=== PATIENT | female | born 1975 | race Hispanic/Latino ===

== ENCOUNTER 2016-11-28 15:45 | Emergency (ER) | payer OTHER ==
[~2016-11-28] VITALS: Ht 154.9 cm; Wt 96.2 kg
[~2016-11-28 15:45] MED LIST: FLEXERIL10 MG PO; GLUCOPHAGE1000 MG PO; SYNTHROID0.05 MG PO; VICODIN5-300 PO
[2016-11-28 15:55] VITALS: BP 131/83
[2016-11-28] MEDS ORDERED: SYNTHROID100 MCG PO (16:30)
[2016-11-28] MEDS ORDERED: TRAZODONE HCL50 M1 PO (16:31)
[2016-11-28] MEDS ORDERED: CYANOCOBAL1000 MCG/2 IM (16:31)
== END 2016-11-28 16:57 | disposition admitted as inpatient to this hospital (09) ==
LOC: ERH 15:45
DX: L55.9 Sunburn, unspecified (principal)

== ENCOUNTER 2017-10-14 23:30 | Inpatient (IN) | payer OTHER ==
[~2017-10-14] VITALS: Ht 154.9 cm; Wt 94.8 kg
[~2017-10-14 23:30] MED LIST changes: +CYANOCOBAL1000 MCG/2 IM; +IBUPROFEN800 M1 PO; +LOCOID 0.1% LIP15 GM TOP; +SYNTHROID100 MCG PO; +TESSALON PERLE100 M1 PO; +TRAZODONE HCL50 M1 PO; +VITAMIN D31000 UNI2 PO
--- NOTE | 2017-10-14 23:37 | ED GI/GU/ABDOMINAL COMPLAINT ---
History of Present Illness General Chief Complaint: Abdominal Pain/Flank Pain Stated Complaint: ABD PAIN Source: patient, family, old records Exam Limitations: no limitations Vital Signs & Intake/Output Vital Signs & Intake/Output Vital Signs Date Time Temp Pulse Resp B/P B/P Pulse O2 O2 Flow FiO2 Mean Ox Delivery Rate 10/14 2336 98.5 83 20 125/92 98 Room Air ED Intake and Output 10/15 0000 10/14 1200 Intake Total Output Total Balance Patient 220 lb Weight Weight Reported by Patient Measurement Method Allergies Coded Allergies: Penicillins (HIVES 11/28/16) Reconcile Medications Benzonatate (Tessalon Perle) 100 MG CAPSULE 1 CAP PO TID COUGH (Reported) Cholecalciferol (Vitamin D3) 1,000 UNIT TABLET 1 TAB PO DAILY VITAMIN SUPPORT (Reported) Cyanocobalamin (Vitamin B-12) (Cyanocobalamin Injection) 1,000 MCG/ML VIAL 1 ML IM Q30D SUPPLEMENT (Reported) Hydrocortisone Butyrate/Emoll (Locoid 0.1% Lipocream) 0.1 % CREAM..G. 1 ERVIN TOP TID PRN ANAL PAIN Ibuprofen 800 MG TABLET 1 TAB PO TID PRN PAIN Levothyroxine Sodium (Synthroid) 100 MCG TABLET 1 TAB PO DAILY THYROID ( Reported) Triage Nurses Notes Reviewed? yes ? N Is pt currently ? No HPI: Patient has a known ventral hernia that she has been procrastinating seeing surgery about. Tonight she had a sudden onset of sharp stabbing pain in the area of her hernia and her hernia popped out and she was unable to put back in. Positive nausea and vomiting. The pain radiates out to the rest of her abdomen. The pain is constant. The pain is 10 out of 10. The pain worsens when she retches. Past History Travel History Traveled to [place] past 21 day No Medical History Any Pertinent Medical History? 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 No Review of Systems Review of Systems Constitutional: Reports: no symptoms. EENTM: Reports: no symptoms. Respiratory: Reports: no symptoms. Cardiovascular: Reports: no symptoms. GI: Reports: see HPI, abdominal pain, nausea, vomiting. Genitourinary: Reports: no symptoms. Musculoskeletal: Reports: no symptoms. Skin: Reports: no symptoms. Neurological/Psychological: Reports: no symptoms. Hematologic/Endocrine: Reports: no symptoms. Immunologic/Allergic: Reports: no symptoms. All Other Systems: Reviewed and Negative Physical Exam Physical Exam General Appearance: well developed/nourished, alert, awake, anxious, severe distress Head: atraumatic, normal appearance Eyes: Bilateral: PERRL, EOMI. Ears, Nose, Throat, Mouth: hearing grossly normal, moist mucous membrane Neck: normal inspection, supple, full range of motion Respiratory: normal breath sounds, chest non-tender, no respiratory distress, lungs clear Cardiovascular: regular rate/rhythm, normal peripheral pulses Gastrointestinal: hernia Back: normal inspection, normal range of motion Extremities: normal range of motion Neurologic/Psych: no motor/sensory deficits, awake, alert, normal mood/affect Skin: intact, normal color, warm/dry Core Measures ACS in differential dx? No Sepsis Present: No Sepsis Focused Exam Completed? No Progress Differential Diagnosis: INCARCERATED HERNIA Plan of Care: Orders Procedure Date/time Status Nothing by Mouth 10/15 B Active LACTIC ACID 10/15 0249 Active Pathway - chart 10/15 022 Active Patient Data 10/15 221 Active Code Status 10/[address] in observation 10/15 UNK Active VTE Mechanical Prophylaxis 10/15 UNK Active Intake & Output 10/15 UNK Active Activity/Ambulation 10/15 UNK Active URINALYSIS 10/14 2349 Complete LACTIC ACID 10/14 234 Complete HUMAN BETA HCG SCREEN 10/14 2348 Complete COMPREHENSIVE METABOLIC PANEL 10/14 2348 Complete CBC WITHOUT DIFFERENTIAL 10/14 2348 Complete Current Medications Sig/Flower Start time Last Medication Dose Stop Time Status Admin Pantoprazole Sodium 40 MG DAILY 10/15 0900 UNVr (Protonix) Dextrose/Sodium 1,000 ML .Q8H 10/15 0230 UNVr Chloride (D5W-1/2 Normal Saline 1000ML) Hydromorphone HCl 1 MG ONCE ONE 10/15 0230 UNVr 10/15 (Dilaudid) 05/27 0231 0222 Hydromorphone HCl 1 MG Q3P PRN 10/15 023 UNVr (Dilaudid) Hydromorphone HCl 0.6 MG Q4P PRN 10/15 229 UNVr (Dilaudid) Ondansetron HCl 4 MG Q8P PRN 10/15 229 UNVr (Zofran) Promethazine HCl 12.5 MG Q6-PRN PRN 10/15 023 UNVr (Phenergen) 10/22 022 Promethazine HCl 25 MG ONCE ONE 10/15 199 UNVr 10/15 (Phenergen) 10/15 200 0158 Sodium Chloride 1,000 ML BOLUS ONE 10/15 129 UNVr 10/15 (Normal Saline 0.9%) 10/15 228 0134 Oxycodone/ 1 TAB ONCE ONE 10/15 0045 CAN Acetaminophen 10/15 0046 (Percocet) Laboratory Tests 10/15/17 0005: Urine Color YEL, Urine Clarity HAZY H, Urine pH 6.0, Ur Specific [place] >= 1.030, Urine Protein NEG, Urine Ketones TRACE H, Urine Nitrite NEG, Urine Bilirubin NEG, Urine Urobilinogen 0.2, Ur Leukocyte Esterase TRACE H, Ur Microscopic SEDIMENT EXAMINED, Urine RBC 1-3, Urine WBC 5-10 H, Ur Epithelial Cells MOD H, Urine Bacteria MANY H, Urine Hemoglobin NEG, Urine Glucose NEG 10/14/17 2355: Anion Gap 17 H, Estimated GFR > 60, BUN/Creatinine Ratio 16.3, Glucose 94, Lactic Acid 2.4 H, Calcium 9.7, Total Bilirubin 0.3, AST 27, ALT 31, Alkaline Phosphatase 120, Total Protein 7.8, Albumin 4.6, Globulin 3.2, Albumin/Globulin Ratio 1.4, Total Beta HCG NEGATIVE, CBC w Diff NO MAN DIFF REQ, RBC 4.42, MCV 77.3 L, MCH 24.7 L, MCHC 31.9 L, RDW 19.3 H, MPV 7.7, Gran % 68.7, Lymphocytes % 22.0, Monocytes % 6.9, Eosinophils % 2.0, Basophils % 0.4, Absolute Granulocytes 6.3, Absolute Lymphocytes 2.0, Absolute Monocytes 0.6, Absolute Eosinophils 0.2, Absolute Basophils 0 Diagnostic Imaging: Viewed by Me: CT Scan. Discussed w/RAD: CT Scan. Radiology Impression: PATIENT: RUDY DAI PRESENT AGE: 42 PATIENT ACCOUNT NO: [id number] : 76 LOCATION: [facility] [place] ORDERING PHYSICIAN: Ciarra Gandara MD SERVICE DATE: 10/15/17 EXAM TYPE: CAT - CT ABD & PELVIS W/O IV CONTRAS EXAMINATION: CT ABDOMEN AND PELVIS WITHOUT CONTRAST CLINICAL INFORMATION: Known hernia. Question bowel involvement. COMPARISON: None TECHNIQUE: Multidetector volumetric imaging was performed from the superior aspect of the liver through the pubic symphysis. Sagittal and coronal reformatted images were obtained on the technologist's workstation. DLP: 1167 mGy-cm FINDINGS: LUNG BASES: Minimal bibasilar atelectasis. The visualized cardiac structures are unremarkable. LIVER, GALLBLADDER, AND BILIARY TREE: The liver is normal in size, shape, and attenuation. No focal hepatic lesion or biliary ductal dilatation is present. The gallbladder is unremarkable with no evidence of radiopaque gallstones, gallbladder wall thickening, or obvious pericholecystic inflammatory changes. PANCREAS: Unremarkable. SPLEEN: Unremarkable. ADRENAL GLANDS: Unremarkable. KIDNEYS AND URETERS: The kidneys are normal in size, shape, and attenuation. No hydronephrosis, hydroureter, or calculi seen. No perinephric stranding. BLADDER: Unremarkable. GASTROINTESTINAL TRACT: Status post Elisabeth-en-Y gastric bypass. The small bowel is mildly prominent and fluid-filled. This extends to an umbilical hernia which contains a loop of small bowel. This appears to be the transition point, consistent with a partial bowel obstruction. There is gas and stool seen within the colon. No free air or free fluid. ABDOMINAL WALL: Umbilical hernia containing a loop of small bowel which appears obstructing. This may be incarcerated. The hernia neck measures 2.7 cm transverse by 1.4 cm CC. LYMPH NODES: Normal. VASCULAR: Unremarkable. PELVIC VISCERA: The uterus and adnexa are unremarkable. OSSEOUS STRUCTURES: No acute or suspicious osseous abnormality. IMPRESSION: Partial small bowel obstruction with the transition point at the umbilical hernia which contains a loop of small bowel. DICTATED BY: Nicho PARKS,Clark DATE/TIME DICTATED:10/15 INFORMATION SECURITY SPECIALIST:KANCHAN DATE/TIME TRANSCRIBED:05/27/18 / 0154 CONFIDENTIAL, DO NOT COPY WITHOUT APPROPRIATE AUTHORIZATION. <Electronically signed in Other Vendor System> SIGNED BY: Nicho PARKS,Clark 10/15/17203 Initial ED EKG: none Comments: Patient placed in the Trendelenburg position and an ice pack has been applied. Patient received IV pain medications as well as antiemetics. Unable to reduce the hernia. On her blood work she is getting acidotic. Surgery has been paged. Departure Departure Disposition: STILL A PATIENT Condition: Stable Clinical Impression Primary Impression: Incarcerated hernia Referrals: Kirstie Roberts APRN (PCP/Family) Departure Forms: Customer Survey General Discharge Information Observation Note Spoke With: Hansel Hoffman DO Physician Advisor Notified: MARCIA PARKS,CIARRA Duran Place Patient In: Non-ED OBS Care Area Rationale for Observation: My rational for observation is as follows [SURGICAL CORRECTION FOR INCARCERATED HERNIA]. OR/GI Note Spoke With: Hansel Hoffman DO ED Treatment Decision: RUDY DAI requires urgent operative management or an emergent procedure that cannot be performed in the Emergency Room setting. Transport To: [facility]
[2017-10-15 00:27] LABS: ABSOLUTE BASOPHIL COUNT 0 /CUMM (0.0-0.2); ABSOLUTE EOSINOPHIL COUNT 0.2 /CUMM (0.0-0.7); ABSOLUTE GRANULOCYTE CT 6.3 /CUMM (1.4-6.5); ABSOLUTE MONOCYTE COUNT 0.6 /CUMM (0.10-0.60); BASOPHIL % 0.4 % (0.0-2.0); GRANULOCYTE % 68.7 % (42.2-75.2); HEMATOCRIT 34.1 % (37-47); MEAN CORPUSCULAR HGB 24.7 PG (27.0-31.0); MEAN CORPUSCULAR HGB CONC 31.9 G/DL (33.0-37.0); MEAN CORPUSCULAR VOLUME 77.3 FL (81.0-99.0); MEAN PLATELET VOLUME 7.7 FL (7.4-10.4); PLATELET COUNT 362 /CUMM (130-400); RBC DISTRIBUTION WIDTH 19.3 % (11.5-14.5); RED BLOOD CELL CT 4.42 /CUMM (4.20-5.40); WHITE BLOOD CELL COUNT 9.1 /CUMM (4.8-10.8)
--- NOTE | 2017-10-15 02:04 | CT SCAN REPORT ---
EXAMINATION: CT ABDOMEN AND PELVIS WITHOUT CONTRAST CLINICAL INFORMATION: Known hernia. Question bowel involvement. COMPARISON: None TECHNIQUE: Multidetector volumetric imaging was performed from the superior aspect of the liver through the pubic symphysis. Sagittal and coronal reformatted images were obtained on the technologist's workstation. DLP: 1167 mGy-cm FINDINGS: LUNG BASES: Minimal bibasilar atelectasis. The visualized cardiac structures are unremarkable. LIVER, GALLBLADDER, AND BILIARY TREE: The liver is normal in size, shape, and attenuation. No focal hepatic lesion or biliary ductal dilatation is present. The gallbladder is unremarkable with no evidence of radiopaque gallstones, gallbladder wall thickening, or obvious pericholecystic inflammatory changes. PANCREAS: Unremarkable. SPLEEN: Unremarkable. ADRENAL GLANDS: Unremarkable. KIDNEYS AND URETERS: The kidneys are normal in size, shape, and attenuation. No hydronephrosis, hydroureter, or calculi seen. No perinephric stranding. BLADDER: Unremarkable. GASTROINTESTINAL TRACT: Status post Elisabeth-en-Y gastric bypass. The small bowel is mildly prominent and fluid-filled. This extends to an umbilical hernia which contains a loop of small bowel. This appears to be the transition point, consistent with a partial bowel obstruction. There is gas and stool seen within the colon. No free air or free fluid. ABDOMINAL WALL: Umbilical hernia containing a loop of small bowel which appears obstructing. This may be incarcerated. The hernia neck measures 2.7 cm transverse by 1.4 cm CC. LYMPH NODES: Normal. VASCULAR: Unremarkable. PELVIC VISCERA: The uterus and adnexa are unremarkable. OSSEOUS STRUCTURES: No acute or suspicious osseous abnormality. IMPRESSION: Partial small bowel obstruction with the transition point at the umbilical hernia which contains a loop of small bowel.
--- NOTE | 2017-10-15 03:11 | History & Physical Pre-Op ---
Neil Camacho 10/15/17 0213: General Information and HPI MD Statement: I have seen and personally examined RUDY DAI and documented this H&P. The patient is a 42 year old F who presented with a patient stated chief complaint of []. Source of Information: patient History of Present Illness: This is a 42 year-old female with a history of hypothyroidism, B12 deficiency anemia and long standing umbilical hernia for 20 years who presents to the ER with suddent onset of sharp, squeezing pain in the area of her hernia. She reports she was at a BBQ and was sitting when the hernia popped out this evening. She reports assoicated nausea and vomited clear material. She reports drinking beer and last ate an empanada around 10 pm. She states her hernia has reduced spontanously in the past. In the ER, hernia was unable to be reduced at the bedside. She had a CT scan which revealed mildly prominent and fluid-filled small bowel that extends to an umbilical hernia which contains a loop of small bowel. Allergies/Medications Allergies: Coded Allergies: Penicillins (HIVES 11/28/16) Home Med list Benzonatate (Tessalon Perle) 100 MG CAPSULE 1 CAP PO TID COUGH (Reported) Cholecalciferol (Vitamin D3) 1,000 UNIT TABLET 1 TAB PO DAILY VITAMIN SUPPORT (Reported) Cyanocobalamin (Vitamin B-12) (Cyanocobalamin Injection) 1,000 MCG/ML VIAL 1 ML IM Q30D SUPPLEMENT (Reported) Hydrocortisone Butyrate/Emoll (Locoid 0.1% Lipocream) 0.1 % CREAM..G. 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 EENTM: Reports: no symptoms. Respiratory: Reports: no symptoms. Cardiovascular: Reports: no symptoms. GI: Reports: see HPI. Genitourinary: Reports: no symptoms. Musculoskeletal: Reports: no symptoms. Skin: Reports: no symptoms. Neurological/Psychological: Reports: no symptoms. Hematologic/Endocrine: Reports: no symptoms. Immunologic/Allergic: Reports: no symptoms. All Other Systems: Reviewed and Negative Exam & Diagnostic Data Last 24 Hrs of Vital Signs/I&O Vital Signs Date Time Temp Pulse Resp B/P B/P Pulse O2 O2 Flow FiO2 Mean Ox Delivery Rate 10/14 2336 98.5 83 20 125/92 98 Room Air Intake & Output 10/15 0800 10/15 0000 10/14 1600 Intake Total 1000 Output Total Balance 1000 Intake, IV 1000 Patient 220 lb Weight Weight Reported by Patient Measurement Method Physical Exam: General: awake and alert accompained by in mild distress due to pain HEENT: NC/AT, dry mucus membranes Lungs: no respiratory distress, CTAB Cardiac: S1S2 noted, RRR Gastrointestinal: moderate umbilical hernia present, unable to reduce, significantly tender to palpation, superior well healed midline incision noted, bowel sounds present Extremities: moves all extremities, no edema or calf tenderness normal range of motion Skin: warm an nondiaphoretic Last 24 Hrs of Labs/Fan: Laboratory Tests 10/15/17 0249: Lactic Acid Pending 10/15/17 0005: Urine Color YEL, Urine Clarity HAZY H, Urine pH 6.0, Ur Specific [place] >= 1.030, Urine Protein NEG, Urine Ketones TRACE H, Urine Nitrite NEG, Urine Bilirubin NEG, Urine Urobilinogen 0.2, Ur Leukocyte Esterase TRACE H, Ur Microscopic SEDIMENT EXAMINED, Urine RBC 1-3, Urine WBC 5-10 H, Ur Epithelial Cells MOD H, Urine Bacteria MANY H, Urine Hemoglobin NEG, Urine Glucose NEG 10/14/17 2355: Anion Gap 17 H, Estimated GFR > 60, BUN/Creatinine Ratio 16.3, Glucose 94, Lactic Acid 2.4 H, Calcium 9.7, Total Bilirubin 0.3, AST 27, ALT 31, Alkaline Phosphatase 120, Total Protein 7.8, Albumin 4.6, Globulin 3.2, Albumin/Globulin Ratio 1.4, Total Beta HCG NEGATIVE, CBC w Diff NO MAN DIFF REQ, RBC 4.42, MCV 77.3 L, MCH 24.7 L, MCHC 31.9 L, RDW 19.3 H, MPV 7.7, Gran % 68.7, Lymphocytes % 22.0, Monocytes % 6.9, Eosinophils % 2.0, Basophils % 0.4, Absolute Granulocytes 6.3, Absolute Lymphocytes 2.0, Absolute Monocytes 0.6, Absolute Eosinophils 0.2, Absolute Basophils 0 Assessment/Plan Assessment/Plan: This is a 42 year-old female with an incarcerated umbical hernia who requires emergent surgical intervention She will remain NPO on IV fluids and proceed to the OR in the morning for hernia repair possible bowel resection with Dr. Hoffman. OR has been notified. She will be kept comfortable with IV analgesics and antiemetics for discomfort. She will be placed in observation in anticipation of discharge if surgery is uneventful. Patient and family understand and agree with plan. Plan of care discussed with Dr. Hoffman who is in agreement. As Ranked By This Provider Problem List: 1. Incarcerated hernia YasminHansel cunningham DO 10/15/17 1010: Attending MD Review Statement Attending Statement Attending MD Statement: examined this patient, discuss w/resident/PA/PLATER APPRENTICE, agreed w/resident/PA/PLATER APPRENTICE, discussed with family, reviewed EMR data (avail), reviewed images Attending Assessment/Plan: Patient seen and examined, agree with above. Acute onset abdominal pain late last night at the hernia site (hernia present for ~20 years), N/V at time of the onset but none since, pain at the hernia site currently, patient admits to eating and alcohol intake up to 10 pm. AVSS UO ok. Abd-obese, soft, + incarcerated periumbilical ventral hernia. Labs ok. Ct scan partially obstructing small bowel loop within the hernia. NPO/IVF, pain control, plan for urgent ventral hernia repair with possible bowel resection. D/W with ED staff, patient, and family who are all in agreement.
--- NOTE | 2017-10-15 03:14 | Patient Discharge Instructions ---
Discharge Instructions General Discharge Information You were seen/treated for: Incarcerated umbilical hernia Watch for these problems: Increased pain, fever > 101.3, chills, nausea, vomiting, redness, swelling, drainage from you incision No bath, but you may shower: Yes Other wound care: Keep incision clean an dry Ok to remove dressing in 48 hours. Diet Continue normal diet: Yes Activity Full Activity/No Limits: No Activity Self Limited: Yes Pounds, do NOT lift more than: 10 (x 4 weeks) Other activity limits: No heavy lifting or streous activity x 4 weeks Acute Coronary Syndrome Inclusion Criteria At DC or during hospital stay patient has or had the following: ACS DIAGNOSIS No Discharge Core Measures Meds if any: Prescribed or Continued at Discharge Meds if any: NOT Prescribed or Continued at Discharge Congestive Heart Failure Inclusion Criteria At DC or during hospital stay patient has or had the following: CHF DIAGNOSIS No Discharge Core Measures Meds if any: Prescribed or Continued at Discharge Meds if any: NOT Prescribed or Continued at Discharge Cerebrovascular accident Inclusion Criteria At DC or during hospital stay patient has or had the following: CVA/TIA Diagnosis No Discharge Core Measures Meds if any: Prescribed or Continued at Discharge Meds if any: NOT Prescribed or Continued at Discharge Venous thromboembolism Inclusion Criteria VTE Diagnosis No VTE Type NONE VTE Confirmed by (Test) NONE Discharge Core Measures - Per Current guidelines, there needs to be overlap - treatment for the first 5 days of Warfarin therapy. - If discharged on Warfarin prior to 5 days of - overlap therapy, the patient will need to be - assessed for post discharge needs including - *Post discharge parental anticoagulation - *Warfarin and/or parental anticoagulation education - *Follow up date to check INR post discharge At least 5 days overlap therapy as Inpatient No Meds if any: Prescribed or Continued at Discharge Note: Overlap Therapy is Warfarin and Anticoagulant Meds if any: NOT Prescribed or Continued at Discharge
--- NOTE | 2017-10-15 10:30 | Operative Report ---
Operative/Inv Procedure Report Surgery Date: 10/15/17 Name of Procedure: Open small bowel resection, open periumbilical ventral hernia repair with mesh Pre-Operative Diagnosis: Incarcerated ventral hernia Post-Operative Diagnosis: Same Estimated Blood Loss: less than 50ml Surgeon/Senior Materials Planner: Hansel Hoffman DO Anesthesia: general endotracheal tube IV Fluids: 1300 cc Drains: None Specimens: ~10 cm small bowel, hernia sac/incarcerated omentum Complications: None Condition: Stable Operative Indication: This is a 42-year-old female that presented to the emergency room with acute onset of pain at her umbilical hernia site. After appropriate workup patient was found to have an incarcerated umbilical hernia with a loop of small bowel causing a partial bowel obstruction. An open hernia repair with possible mesh and a possible small bowel resection was and discussed with the patient and the family in detail. All risks including but not limited to bleeding, infection, recurrence, leak at anastomotic site, and injury to surrounding structures were discussed in detail. The patient understood everything and decided to proceed. Operative/Procedure Note Note: The patient was brought to the operating room and placed on the table in supine position. Venodyne stockings were placed and adequate general endotracheal anesthesia was obtained. Patient prepped and draped in standard surgical fashion. Midline incision was made around the umbilicus to approximately 10 cm in length. Incision was carried through the subcutaneous tissue to the hernia sac. The hernia sac was circumferentially dissected away from surrounding tissue. The umbilicus was detached off of the hernia sac making sure not to violate skin. At that point the hernia sac was opened and large amount of incarcerated omentum was identified and excised. A loop of small bowel was seen herniating through the opening and appeared purple color. The hernia defect was then extended inferiorly and the small bowel was brought into view. Small bowel was able to be fully reduced and examined. Most of the small bowel returned to good color with good peristalsis. However, areas that were at the neck of the hernia still appeared purple and narrowed. To prevent future ischemic strictures decision was made to resect the small portion of small bowel. Healthy area of small bowel was resected proximally and distally to the loop of incarcerated bowel using 60 mm yin staple load. A side to side small bowel anastomosis was then created using a 60 mm yin staple load as well and the common enterotomy was closed using a 60 mm yin staple load also. The mesentery of the resected small bowel was divided using LigaSure device. Mesenteric defect was then closed using 2-0 silk suture in a running fashion. 3-0 silk suture 2 was placed at the crotch of the staple line to take some tension off the angle. The anastomosis was then examined and appeared widely patent and intact with no leak. The small bowel was then reduced back into the abdominal cavity. There was some spillage of small bowel contents during the small bowel resection so decision was made not to use a synthetic mesh. The fascia was closed using interrupted #1 Prolene sutures in a [id number] fashion. The wound was copiously irrigated prior to closure. Following this a piece of bio a mesh was placed in an overlay fashion and secured using 0 Vicryl suture. The wound was once again irrigated. Subcutaneous tissue was closed using 3-0 Vicryl suture. The umbilicus was reattached to the anterior abdominal wall using 3-0 Vicryl sutures as well. The skin was closed using emmanuel. Sterile dressing was placed. The patient was successfully extubated and transferred to recovery room in stable condition. The patient tolerated the procedure well with no complications. Findings of the case were discussed immediately with the family at the end. Findings: Incarcerated loop of small bowel, return of good color and activity to most of the bowel after reduction, areas at the neck appeared tight/purple, loop resected to prevent strictures/delayed perforation, onlay Bio-A mesh used CC: Kirstie Roberts APRN
--- NOTE | 2017-10-15 11:26 | PN- General Surgery ---
Subjective Subjective: Post op check Awake, alert No complaints at this time Denies any nausea, pain is well controlled Objective Vital Signs and I&Os Vital Signs Date Time Temp Pulse Resp B/P B/P Pulse O2 O2 Flow FiO2 Mean Ox Delivery Rate 10/15 0628 98.2 65 18 120/70 97 Room Air 10/15 0300 98.1 72 20 134/84 97 Room Air 10/14 2336 98.5 83 20 125/92 98 Room Air Intake & Output 10/15 0810/15 0000 10/14 1600 10/14 0810/14 0000 Intake Total 1000 Output Total Balance 1000 Intake, IV 1000 Patient 220 lb Weight Weight Reported by Patient Measurement Method Physical Exam: General: alert and oriented times three Chest: clear anteriorly bilaterally, RRR Abd: soft, good bs ext: warm, no edema, ALPS in place Wd: dressed, dry Assessment/Plan Assessment/Plan 42yo female s/p iincarcerated ventral hernia repair with small bowel resection about 10 cm clear liquids tonight advance tomorrow as tolerated continue abx due to contaminated case cipro/flagyl due to pcn allergy per Dr Hoffman hep sc/alps for dvt ppx pepcid for gi ppx Core Measures Venous Thromboembolism VTE Risk Factors Surgery No Mechanical VTE Prophylaxis d/t N/A MechProphylax Ordered No VTE Pharm Prophylaxis d/t NA PharmProphylax ordered
[2017-10-15 11:58] VITALS: BP 120/68
[2017-10-15 13:40] VITALS: BP 126/90
[2017-10-15 22:37] VITALS: BP 106/76
[2017-10-16 05:59] VITALS: BP 100/74
[2017-10-16 09:16] LABS: ABSOLUTE BASOPHIL COUNT 0 /CUMM (0.0-0.2); ABSOLUTE EOSINOPHIL COUNT 0.1 /CUMM (0.0-0.7)
--- NOTE | 2017-10-16 09:25 | PN- General Surgery ---
Subjective Subjective: patient lying in bed complains of generalized abdominal soreness with nausea. Has small sips of broth this morning, no BS yet Review of Systems Constitutional: Denies: chills, fever, weakness. Cardiovascular: Denies: chest pain, edema. Respiratory: Denies: short of breath. Gastrointestinal: Reports: abdominal pain, bloating, distention, nausea. Denies: vomiting. Objective Vital Signs and I&Os Vital Signs Date Time Temp Pulse Resp B/P B/P Pulse O2 O2 Flow FiO2 Mean Ox Delivery Rate 10/16 0559 98.2 73 20 100/74 97 Room Air 10/15 2237 98.8 69 18 106/76 97 10/15 1340 98.3 70 20 126/90 96 Room Air 10/15 1158 98.3 68 20 120/68 97 Room Air Intake & Output 10/16 1600 10/16 0800 10/16 0000 10/15 1600 10/15 0800 10/15 0000 Intake Total 1400 1250 1050 1000 Output Total 1400 1700 900 Balance 0 -189 999 6243 Intake, IV 1000 7075 659 3865 Intake, Oral 400 250 800 Output, Urine 1400 1700 900 Patient 210 lb 220 lb Weight Weight Reported by Patient Reported by Patient Measurement Method Patient is alert and comfortable lying in bed VSS afebrile AM labs still pending Chest - CTA symmtric without rales, ronchi or wheeze heart -RRR without MRG Abdom -rounded, mild distention, tender throughout dressing CDI bilateral lower extremities no edema, soft Assessment/Plan Assessment/Plan POD 1 repair of incarcerated ventral hernia IV cipro/flagyl for 48hr advance diet slowly -on CLD -added regaln OOB to chair and abulation DVT proph -HSQ Core Measures Venous Thromboembolism VTE Risk Factors Surgery No Mechanical VTE Prophylaxis d/t N/A MechProphylax Ordered No VTE Pharm Prophylaxis d/t NA PharmProphylax ordered
[2017-10-16 09:40] LABS: ABSOLUTE LYMPH COUNT 1.6 /CUMM (1.2-3.4); ABSOLUTE MONOCYTE COUNT 0.4 /CUMM (0.10-0.60); BASOPHIL % 0.3 % (0.0-2.0); EOSINOPHIL % 0.9 % (0-5); GRANULOCYTE % 79.4 % (42.2-75.2); MEAN CORPUSCULAR HGB 24.9 PG (27.0-31.0); MEAN CORPUSCULAR HGB CONC 31.8 G/DL (33.0-37.0); MEAN CORPUSCULAR VOLUME 78.2 FL (81.0-99.0); MEAN PLATELET VOLUME 8.3 FL (7.4-10.4); PLATELET COUNT 246 /CUMM (130-400); RBC DISTRIBUTION WIDTH 20.2 % (11.5-14.5); RED BLOOD CELL CT 3.53 /CUMM (4.20-5.40); WHITE BLOOD CELL COUNT 10.1 /CUMM (4.8-10.8)
[2017-10-16 09:45] LABS: HEMATOCRIT 27.5 % (37-47)
[2017-10-16 12:43] LABS: ABSOLUTE BASOPHIL COUNT 0 /CUMM (0.0-0.2); ABSOLUTE EOSINOPHIL COUNT 0.1 /CUMM (0.0-0.7); ABSOLUTE GRANULOCYTE CT 11.1 /CUMM (1.4-6.5); ABSOLUTE LYMPH COUNT 1.3 /CUMM (1.2-3.4); ABSOLUTE MONOCYTE COUNT 0.5 /CUMM (0.10-0.60); BASOPHIL % 0.1 % (0.0-2.0); EOSINOPHIL % 0.8 % (0-5); HEMATOCRIT 30.2 % (37-47); MEAN CORPUSCULAR HGB CONC 31.8 G/DL (33.0-37.0); MEAN CORPUSCULAR VOLUME 78.4 FL (81.0-99.0); PLATELET COUNT 285 /CUMM (130-400); RBC DISTRIBUTION WIDTH 19.8 % (11.5-14.5); RED BLOOD CELL CT 3.85 /CUMM (4.20-5.40); WHITE BLOOD CELL COUNT 13.1 /CUMM (4.8-10.8)
[2017-10-16 12:55] LABS: GRANULOCYTE % 85.1 % (42.2-75.2)
[2017-10-16 14:14] VITALS: BP 100/60
[2017-10-16 21:54] VITALS: BP 124/60
[2017-10-17 07:11] VITALS: BP 100/52
--- NOTE | 2017-10-17 07:34 | PN- General Surgery ---
See Addendum Subjective Subjective: Patient reports generalized abdominal pain. She reports nausea with clears. She reports voiding. She denies passing flatus or moving her bowels. She is ambulating in the halls. Denies cough, chest pain, shortness or breath or difficulty breathing. Per nursing, patient had a fever of 101.8 this morning. Objective Vital Signs and I&Os Vital Signs Date Time Temp Pulse Resp B/P B/P Pulse O2 O2 Flow FiO2 Mean Ox Delivery Rate 10/17 0711 101.8 80 16 100/52 94 Room Air 10/17 0651 101.8 10/16 2154 100.4 68 20 124/60 98 10/16 1414 100.0 64 20 100/60 98 Room Air Intake & Output 10/17 0810/17 0000 10/16 1600 10/16 0810/16 0000 10/15 1600 Intake Total 1300 1775 1675 1400 1250 1050 Output Total 434 879 4929 1700 900 Balance 700 1275 1675 0 -450 150 Intake, IV 8202 914 4681 1000 1000 250 Intake, Oral 300 800 600 400 250 800 Output, Urine 730 253 7825 1700 900 Patient 216 lb 210 lb Weight Weight Bed scale Reported by Patient Measurement Method Physical Exam: Gen - resting comfortably accompained by in nad Cardiac - S1S2 noted Lungs - diminished due to body habitus, otherwise clear Abd - soft, obese, mild distention, midline dressing c/d/i, incision closed with emmanuel, healing well with no signs of infection, left rolls baker, hypoactive bs, appropriately tender emmett-incisionally Ext - alps in place, no edema or calf tnederness Current Medications: Current Medications Sig/Flower Start time Last Medication Dose Route Stop Time Status Admin Acetaminophen 1,000 MG Q6P PRN 10/17 0645 AC 10/17 N/A 1 UNIT IV 0651 Alprazolam 0.5 MG .STK-MED ONE 10/16 0931 DC PO 10/16 0932 Ciprofloxacin 400 MG Q12H 10/16 1999 AC 10/16 Dextrose/Water 200 ML IV 10/17 0859 203 Dextrose/Sodium 1,000 ML .Q8H 10/15 0230 AC 10/17 Chloride IV 0536 Heparin Sodium 5,000 UNIT Q8 10/16 1400 CAN (Porcine) SC Heparin Sodium 5,000 UNIT Q8 10/15 1400 AC 10/17 (Porcine) SC 0535 Hydromorphone HCl 1 MG Q3P PRN 10/15 0230 AC 10/17 IV 0254 Ketorolac 30 MG Q8P PRN 10/16 2130 AC Tromethamine IV 10/21 2128 Levothyroxine Sodium 0.1 MG DAILY AC 10/15 1018 AC 10/17 PO 0534 Metoclopramide HCl 10 MG Q6 10/16 1200 AC 10/17 IV 0535 Metronidazole 500 MG IQ8 10/15 1600 AC 10/16 N/A 1 UNIT IV 10/17 0859 2312 Omeprazole 40 MG DAILY AC 10/16 0700 AC 10/17 PO 0534 Ondansetron HCl 4 MG Q8P PRN 10/15 0230 AC 10/15 IV 1824 Oxycodone HCl 5 MG Q4P PRN 10/15 1015 AC PO Oxycodone HCl 10 MG Q4P PRN 10/15 1015 AC 10/17 PO 0534 Promethazine HCl 12.5 MG Q6-PRN PRN 10/15 0230 AC IV 10/22 0229 Results Last 48 Hours of Labs: Laboratory Tests 10/17 10/16 0700 1205 Chemistry Sodium Pending Potassium Pending Chloride Pending Carbon Dioxide Pending Anion Gap Pending BUN Pending Creatinine Pending BUN/Creatinine Ratio Pending Hematology CBC w Diff NO MAN DIFF REQ WBC (4.8 - 10.8 /CUMM) 13.1 H RBC (4.20 - 5.40 /CUMM) 3.85 L Hgb (12.0 - 16.0 G/DL) 9.6 L Hct (37 - 47 %) 30.2 L MCV (81.0 - 99.0 FL) 78.4 L MCH (27.0 - 31.0 PG) 25.0 L MCHC (33.0 - 37.0 G/DL) 31.8 L RDW (11.5 - 14.5 %) 19.8 H Plt Count (130 - 400 /CUMM) 285 MPV (7.4 - 10.4 FL) 8.0 Gran % (42.2 - 75.2 %) 85.1 H Lymphocytes % (20.5 - 51.1 %) 10.1 L Monocytes % (1.7 - 9.3 %) 3.9 Eosinophils % (0 - 5 %) 0.8 Basophils % (0.0 - 2.0 %) 0.1 Absolute Granulocytes (1.4 - 6.5 /CUMM) 11.1 H Absolute Lymphocytes (1.2 - 3.4 /CUMM) 1.3 Absolute Monocytes (0.10 - 0.60 /CUMM) 0.5 Absolute Eosinophils (0.0 - 0.7 /CUMM) 0.1 Absolute Basophils (0.0 - 0.2 /CUMM) 0 10/16 0747 Chemistry Sodium (137 - 145 mmol/L) 138 Potassium (3.5 - 5.1 mmol/L) 3.7 Chloride (98 - 107 mmol/L) 104 Carbon Dioxide (22 - 30 mmol/L) 26 Anion Gap (5 - 16) 8 BUN (7 - 17 mg/dL) 4 L Creatinine (0.5 - 1.0 mg/dL) 0.6 Estimated GFR (>60 ml/min) > 60 BUN/Creatinine Ratio (7 - 25 %) 6.7 L Hematology CBC w Diff NO MAN DIFF REQ WBC (4.8 - 10.8 /CUMM) 10.1 RBC (4.20 - 5.40 /CUMM) 3.53 L Hgb (12.0 - 16.0 G/DL) 8.8 L Hct (37 - 47 %) 27.5 L MCV (81.0 - 99.0 FL) 78.2 L MCH (27.0 - 31.0 PG) 24.9 L MCHC (33.0 - 37.0 G/DL) 31.8 L RDW (11.5 - 14.5 %) 20.2 H Plt Count (130 - 400 /CUMM) 246 MPV (7.4 - 10.4 FL) 8.3 Gran % (42.2 - 75.2 %) 79.4 H Lymphocytes % (20.5 - 51.1 %) 15.4 L Monocytes % (1.7 - 9.3 %) 4.0 Eosinophils % (0 - 5 %) 0.9 Basophils % (0.0 - 2.0 %) 0.3 Absolute Granulocytes (1.4 - 6.5 /CUMM) 8.0 H Absolute Lymphocytes (1.2 - 3.4 /CUMM) 1.6 Absolute Monocytes (0.10 - 0.60 /CUMM) 0.4 Absolute Eosinophils (0.0 - 0.7 /CUMM) 0.1 Absolute Basophils (0.0 - 0.2 /CUMM) 0 Assessment/Plan Assessment/Plan 42 F POD 2 s/p incarcerated ventral hernia repair with sbr ~10 cm, febrile with no return of bowel function Cont clears, IVF Cont cipro/flagyl Analgesics/antimemtics/antipyretics prn GI ppx on board DVT ppx - hsq, alps, ambulate Encourage IS F/u labs Will d/w Dr. Hoffman Core Measures Venous Thromboembolism VTE Risk Factors Surgery No Mechanical VTE Prophylaxis d/t N/A MechProphylax Ordered No VTE Pharm Prophylaxis d/t NA PharmProphylax ordered
[2017-10-17 13:00] LABS: ABSOLUTE BASOPHIL COUNT 0.1 /CUMM (0.0-0.2); ABSOLUTE EOSINOPHIL COUNT 0.1 /CUMM (0.0-0.7); ABSOLUTE GRANULOCYTE CT 11.6 /CUMM (1.4-6.5); ABSOLUTE LYMPH COUNT 0.9 /CUMM (1.2-3.4); ABSOLUTE MONOCYTE COUNT 0.5 /CUMM (0.10-0.60); EOSINOPHIL % 0.5 % (0-5); HEMATOCRIT 30.3 % (37-47); MEAN CORPUSCULAR HGB 25.2 PG (27.0-31.0); MEAN CORPUSCULAR HGB CONC 32.6 G/DL (33.0-37.0); MEAN CORPUSCULAR VOLUME 77.4 FL (81.0-99.0); MEAN PLATELET VOLUME 7.9 FL (7.4-10.4); RBC DISTRIBUTION WIDTH 19.7 % (11.5-14.5); RED BLOOD CELL CT 3.91 /CUMM (4.20-5.40); WHITE BLOOD CELL COUNT 13.3 /CUMM (4.8-10.8)
[2017-10-17 13:19] LABS: GRANULOCYTE % 87.8 % (42.2-75.2); PLATELET COUNT 286 /CUMM (130-400)
[2017-10-17 13:59] VITALS: BP 110/62
--- NOTE | 2017-10-17 16:35 | RADIOLOGY REPORT ---
EXAMINATION: XR CHEST CLINICAL INFORMATION: cough, fever COMPARISON: None TECHNIQUE: 2 views of the chest were obtained. FINDINGS: The lungs are hypoinflated. Linear markings at the bases bilaterally, most likely compressive atelectasis as a result of hypoinflation. No definite consolidations suggestive of infection although evaluation is limited by hypoinflation, especially at the bases. No pleural effusion or pneumothorax. Heart size is normal. No acute osseous abnormality. IMPRESSION: Lung hypoinflation limits evaluation. No definite consolidations.
[2017-10-17 22:51] VITALS: BP 106/58
[2017-10-18 06:29] VITALS: BP 108/56
--- NOTE | 2017-10-18 07:23 | PN- General Surgery ---
See Addendum Subjective Subjective: POD#3 S/P BOWEL RESECTION FOR INARCERATED UMBILICAL HERNIA C/O 1 EPISODE OF DRENCHING SWEATS LAST EVENING DENIESN+V WITH CLEAR DIET DOES C/O DIARRHEA CXR WITHOUT EVIDENCE OF INFILTRATE URINE CX PENDING HAS BEEN OOB/AMBULATING Objective Vital Signs and I&Os Vital Signs Date Time Temp Pulse Resp B/P B/P Pulse O2 O2 Flow FiO2 Mean Ox Delivery Rate 10/18 06 100.9 86 20 108/56 93 Room Air 10/17 2251 98.6 66 20 106/58 97 Room Air 10/17 1456 99.2 10/17 1359 101.3 82 20 110/62 95 10/17 1340 101.3 Intake & Output 10/18 0810/18 0000 10/17 1600 10/17 0810/17 0000 10/16 1600 Intake Total 400 1490 1300 1775 1675 Output Total 600 500 Balance 400 9404 538 3152 1675 Intake, IV 300 1010 8361 120 1447 Intake, Oral 100 480 300 800 600 Number 0 Bowel Movements Output, Urine 600 500 Patient 209 lb 216 lb Weight Weight Bed scale Measurement Method Physical Exam: CV: RRR LUNGS: CLEAR ABD:SOFT, +BS WOUND C/D/I NO CELLULITIS/FLUCTUANCE EXT: CALVES SOFT, BIALT DISTAL CMS INTACT Assessment/Plan Assessment/Plan PERSISTENT LOW GRADE TEMPS S/P BOWEL RESECTION FOR INC HERNIA PLAN F/U AM LABS WILL DISCUSS WITH ATTENDING Core Measures Venous Thromboembolism VTE Risk Factors Surgery No Mechanical VTE Prophylaxis d/t N/A MechProphylax Ordered No VTE Pharm Prophylaxis d/t NA PharmProphylax ordered
[2017-10-18 09:15] LABS: ABSOLUTE BASOPHIL COUNT 0 /CUMM (0.0-0.2); ABSOLUTE EOSINOPHIL COUNT 0.1 /CUMM (0.0-0.7); ABSOLUTE GRANULOCYTE CT 7.6 /CUMM (1.4-6.5); ABSOLUTE MONOCYTE COUNT 0.6 /CUMM (0.10-0.60); BASOPHIL % 0.2 % (0.0-2.0); EOSINOPHIL % 1.2 % (0-5); GRANULOCYTE % 81.4 % (42.2-75.2); MEAN CORPUSCULAR HGB 24.7 PG (27.0-31.0); MEAN CORPUSCULAR HGB CONC 31.5 G/DL (33.0-37.0); MEAN CORPUSCULAR VOLUME 78.6 FL (81.0-99.0); MEAN PLATELET VOLUME 8.1 FL (7.4-10.4); PLATELET COUNT 262 /CUMM (130-400); RBC DISTRIBUTION WIDTH 19.5 % (11.5-14.5); RED BLOOD CELL CT 3.16 /CUMM (4.20-5.40); WHITE BLOOD CELL COUNT 9.3 /CUMM (4.8-10.8)
[2017-10-18 09:32] LABS: HEMATOCRIT 24.8 % (37-47)
[2017-10-18 14:48] VITALS: BP 112/62
[2017-10-18 21:57] VITALS: BP 140/70
[2017-10-19 06:53] VITALS: BP 142/74
[2017-10-19 08:31] LABS: ABSOLUTE BASOPHIL COUNT 0 /CUMM (0.0-0.2); ABSOLUTE EOSINOPHIL COUNT 0.1 /CUMM (0.0-0.7); ABSOLUTE GRANULOCYTE CT 5.4 /CUMM (1.4-6.5); ABSOLUTE MONOCYTE COUNT 0.6 /CUMM (0.10-0.60); BASOPHIL % 0.2 % (0.0-2.0); EOSINOPHIL % 2.1 % (0-5); HEMATOCRIT 24.5 % (37-47); MEAN CORPUSCULAR HGB 24.6 PG (27.0-31.0); MEAN CORPUSCULAR HGB CONC 31.6 G/DL (33.0-37.0); MEAN CORPUSCULAR VOLUME 77.8 FL (81.0-99.0); MEAN PLATELET VOLUME 7.9 FL (7.4-10.4); PLATELET COUNT 290 /CUMM (130-400); RBC DISTRIBUTION WIDTH 19.4 % (11.5-14.5); RED BLOOD CELL CT 3.15 /CUMM (4.20-5.40); WHITE BLOOD CELL COUNT 7.2 /CUMM (4.8-10.8)
--- NOTE | 2017-10-19 08:46 | PN- General Surgery ---
Yaritza Lopez 10/19/17 0841: Subjective Subjective: Patient complaining of generalized abdominal pain, worsening, this morning. Points to RUQ as most uncomfortable especially when taking a deep breath. Denies chest pain, dizziness. Denies recent nausea or vomitting. Is able to pass flatus. Is voiding. Has been oob ambulating. Objective Vital Signs and I&Os Vital Signs Date Time Temp Pulse Resp B/P B/P Pulse O2 O2 Flow FiO2 Mean Ox Delivery Rate 10/19 0703 100.2 10/19 0653 100.2 67 20 142/74 99 Room Air 10/18 2157 98.6 68 20 140/70 100 Room Air 10/18 1448 99.8 66 20 112/62 99 Intake & Output 10/19 1600 10/19 0800 10/19 0000 10/18 1600 10/18 0800 10/18 0000 Intake Total 525 111 9671 800 400 Output Total Balance 362 059 7466 800 400 Intake, IV 600 300 625 600 300 Intake, Oral 240 240 500 200 100 Patient 209 lb Weight Physical Exam: General: Alert and oriented x3, no acute distress Cardiac: RRR, s1s2 Pulm: CTA Abdomen: Soft, tender/guarding with palpation of RUQ and LUQ. Upper portion of dressing saturated with serosanguinous drainage. Extremities: Moves all extremities, distal sensation intact. Skin warm and well perfused. Bilateral calves soft and non-tender. Assessment/Plan Assessment/Plan This is a 42 year old female, POD 4, s/p repair incarcerated ventral hernia. Has been complaining of worsening abdominal pain throughout day. -CT of abdomen and pelvis with iv and oral contrast -Continue oob -Daily dry dressing changes -Sub q hep/alps for dvt ppx Core Measures Venous Thromboembolism VTE Risk Factors Surgery No Mechanical VTE Prophylaxis d/t N/A MechProphylax Ordered No VTE Pharm Prophylaxis d/t NA PharmProphylax ordered Hansel Hoffman DO 10/19/17 1709: Attending MD Review Statement Attending Statement Attending MD Statement: examined this patient, discuss w/resident/PA/JEWELRY MECHANIC, agreed w/resident/PA/JEWELRY MECHANIC, discussed with family, reviewed EMR data (avail), reviewed images Attending Assessment/Plan: Patient seen and examined, agree with above. No further pain, hungry. Tm 100.3 VSS UO ok +BMs. Abd-soft, dressing with serosanguinous drainage. Labs ok. CT scan normal aside for subq seroma. Diet, D/C Planning with home wound care.
[2017-10-19 14:18] VITALS: BP 110/80
--- NOTE | 2017-10-19 15:17 | CT SCAN REPORT ---
EXAMINATION: CT ABDOMEN AND PELVIS WITH CONTRAST CLINICAL INFORMATION: Pain following incarcerated hernia repair. COMPARISON: October 15, 2017. TECHNIQUE: Contiguous axial thin section helical images of the abdomen and pelvis were performed following the administration of 100 mL of intravenous Omnipaque 300. The data set was reformatted in the coronal and sagittal planes and reviewed on an independent workstation. DLP: 1167 mGy-cm. FINDINGS: There is right greater than left streaky and linear bibasilar opacification. The visualized portions of the heart are unremarkable. Surgical chain sutures are present within the upper abdomen likely indicative of prior gastric bypass. The liver is of normal size and attenuation without focal lesions nor intrahepatic biliary ductal dilation. A normal gallbladder is identified. There is no wall thickening or discernible pericholecystic fluid. The spleen, pancreas, adrenal glands are unremarkable. Both kidneys are of normal size and attenuation without hydronephrosis or nephrolithiasis. Following the administration of IV contrast, prompt symmetric nephrograms are displayed. There is a trace amount of free fluid inferior to the right lobe of the liver. There is neither mesenteric nor retroperitoneal lymphadenopathy. Just deep to the umbilicus, there is an approximately 8.4 x 4.5 x 5.4 cm complicated fluid collection with a few flecks of gas. There is a single thin septation present. There is no significant peripheral enhancement. There is no demonstrable residual hernia. Normal unopacified loops of small and large bowel are identified. There is no pelvic free fluid. The urinary bladder is unremarkable. There is neither pelvic nor inguinal lymphadenopathy. Bone windows: Neither sclerotic nor lytic bone lesions are identified. IMPRESSION: Approximately 8.4 cm fluid collection with a few flecks of gas deep to the umbilicus likely energy conservation representative of a seroma or degrading hematoma. No residual hernia is demonstrable. Trace free fluid inferior to the right lobe of the liver. Bibasilar airspace disease. That this represents a developing pneumonia, 40 on the right, cannot be excluded. Recommendation is for a followup chest series to be obtained following treatment and/or resolution of symptoms to assure resolution of this appearance.
[2017-10-19] MEDS ORDERED: PERCOCET 5-3251 EACH PO ×2 (17:00→17:16)
--- NOTE | 2017-10-19 17:14 | Surgical Discharge Summary ---
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 Home Who Do You Live With? Family Services at Home: None What is Your Primary Language? Liberian ETOH Use: denies use (beer/whisky/wine 4x/week), occasional use Other Addictive Behavior: with 5 children Review of Systems: see H&P Hospital Course Course Attending Physician: Hansel Hoffman DO Primary Care Physician: Kirstie Roberts APRN Hospital Course: Beatriz presented to hospital with complaints of abdominal pain related to an incarcerated ventral hernia. She underwent a surgical repair on 10/15/2017. Her post operative course was complicated by atelectasis and some temperature elevations. Urine culture as well as CT of abdomen post operatively were negative. Her diet was advanced and tolerated. At the time of hospital discharge, her vital signs were stable and within normal limits. She was discharged to home with [facility] Allergies: Coded Allergies: Penicillins (HIVES 11/28/16) Disposition Summary Disposition Principal Diagnosis: Incarcerated ventral hernia Additional Diagnosis: None Discharge Disposition: home health services Discharge Instructions General Discharge Information Code Status: Full Code Patient's Diet: Bariatric stage 5 Patient's Activity: As tolerated Follow-Up Instructions/Appts: ceciliaiy dressing changes to abdominal with packing of fluff drsg in superfical areas of wound where emmanuel were removed follow up with Dr. Hoffman in two weeks from date of surgery Medications at Discharge Discharge Medications: Stop taking the following medications: Ibuprofen (Ibuprofen) 800 MG TABLET ORAL THREE TIMES DAILY as needed for PAIN Qty = 30 Continue taking these medications: Levothyroxine Sodium (Synthroid) 100 MCG TABLET 1 Tablet ORAL DAILY Qty = 30 Cyanocobalamin (Vitamin B-12) (Cyanocobalamin Injection) 1,000 MCG/ML VIAL 1 Milliliters INTRAMUSC ONCE A MONTH Qty = 1 Cholecalciferol (Vitamin D3) 1,000 UNIT TABLET 1 Tablet ORAL DAILY Benzonatate (Tessalon Perle) 100 MG CAPSULE 1 Capsule ORAL THREE TIMES DAILY Hydrocortisone Butyrate/Emoll (Locoid 0.1% Lipocream) 0.1 % CREAM..G. 1 Application On the skin THREE TIMES DAILY as needed for ANAL PAIN Qty = 1 Start taking the following new medications: Oxycodone HCl/Acetaminophen (Percocet 5-325 MG Tablet) 5 MG-325 MG TABLET 1-2 Tablet ORAL EVERY 4-6 HOURS as needed for PAIN Qty = 36 No Refills Instructions: . Sulfamethoxazole/Trimethoprim (Bactrim Ds Tablet) 800 MG-160 MG TABLET 1 Tablet ORAL TWICE DAILY Qty = 20 No Refills
[2017-10-19] MEDS ORDERED: BACTRIM DS TAB1 EACH PO (17:29)
[2017-10-19 21:30] VITALS: BP 110/70
[2017-10-20 06:00] VITALS: BP 110/68
[2017-10-20 09:48] LABS: ABSOLUTE BASOPHIL COUNT 0 /CUMM (0.0-0.2); ABSOLUTE EOSINOPHIL COUNT 0.2 /CUMM (0.0-0.7); ABSOLUTE GRANULOCYTE CT 6.4 /CUMM (1.4-6.5); ABSOLUTE LYMPH COUNT 1.4 /CUMM (1.2-3.4); ABSOLUTE MONOCYTE COUNT 0.7 /CUMM (0.10-0.60); BASOPHIL % 0.5 % (0.0-2.0); EOSINOPHIL % 2.4 % (0-5); HEMATOCRIT 26.7 % (37-47); MEAN CORPUSCULAR HGB CONC 32.4 G/DL (33.0-37.0); MEAN CORPUSCULAR VOLUME 77.2 FL (81.0-99.0); MEAN PLATELET VOLUME 8.6 FL (7.4-10.4); PLATELET COUNT 352 /CUMM (130-400); RBC DISTRIBUTION WIDTH 19.5 % (11.5-14.5); RED BLOOD CELL CT 3.46 /CUMM (4.20-5.40); WHITE BLOOD CELL COUNT 8.8 /CUMM (4.8-10.8)
== END 2017-10-20 12:32 | disposition home health service (06) | DRG 230 ==
LOC: ERH 23:30 → ERHI 10-15 02:22 → EDBEDREQ 10-15 02:58 → 2NA 10-15 10:17 → ENRESERV 10-15 10:31 → ENTRNSPT 10-15 11:18 → EDTRNSPT 10-15 11:24 → EDTRNSPTSTS 10-15 11:24 → 2NA 10-15 11:33 → CMPTRNSPT 10-15 11:43 → 2NA 10-17 10:43 → ENPENDDIS 10-20 11:59 → 2NA 10-20 12:32
PROVIDERS: Emergency Medicine; Nurse Practitioner; Physician Assistant; Physician Assistant Surgical
PROC: 0WUF0KZ Supplement Abdominal Wall with Nonautologous Tissue Substitute, Open Approach (ICD-10-PCS; principal; 2017-10-15)
PROC: 0DBU0ZZ Excision of Omentum, Open Approach (ICD-10-PCS; principal; 2017-10-15)
PROC: 0DB80ZZ Excision of Small Intestine, Open Approach (ICD-10-PCS; principal; 2017-10-15)
PROC: 3E0T3BZ Introduction of Anesthetic Agent into Peripheral Nerves and Plexi, Percutaneous Approach (ICD-10-PCS; 2017-10-15)
DX: K43.6 Other and unspecified ventral hernia with obstruction, without gangrene (principal); E03.9 Hypothyroidism, unspecified; D51.9 Vitamin B12 deficiency anemia, unspecified; R50.9 Fever, unspecified; F17.210 Nicotine dependence, cigarettes, uncomplicated; D68.51 Activated protein C resistance; Z98.84 Bariatric surgery status; Z88.0 Allergy status to penicillin
CPT/HCPCS: 2NASP; 6030; 36415; 36592; 71046; 74176; 74177; 81001; 82436; 87086; 88307; 96361; 96374; 96375; 96376; C1781; C9399; G0378; J0131; J0744; J1644; J1885; J2405; J2550; J2765; J7060

== ENCOUNTER 2018-01-02 20:58 | Emergency (ER) | payer OTHER ==
[~2018-01-02] VITALS: Ht 154.9 cm; Wt 86.6 kg
[~2018-01-02 20:58] MED LIST changes: +BACTRIM DS TAB1 EACH PO; +PERCOCET 5-3251 EACH PO
[2018-01-02 21:08] VITALS: BP 113/76
[2018-01-02] MEDS ORDERED: MOXIFLOXACIN3 ML OD (21:36)
--- NOTE | 2018-01-02 21:36 | ED GENERAL ADULT ---
History of Present Illness General Chief Complaint: General Adult Stated Complaint: MED REQ Source: patient Exam Limitations: no limitations Vital Signs & Intake/Output Vital Signs & Intake/Output Vital Signs Date Time Temp Pulse Resp B/P B/P Pulse O2 O2 Flow FiO2 Mean Ox Delivery Rate 01/02 2108 97.0 62 18 113/76 98 Room Air Allergies Coded Allergies: Penicillins (HIVES 11/28/16) Reconcile Medications Benzonatate (Tessalon Perle) 100 MG CAPSULE 1 CAP PO TID COUGH (Reported) Cholecalciferol (Vitamin D3) 1,000 UNIT TABLET 1 TAB PO DAILY VITAMIN SUPPORT (Reported) Cyanocobalamin (Vitamin B-12) (Cyanocobalamin Injection) 1,000 MCG/ML VIAL 1 ML IM Q30D SUPPLEMENT (Reported) Hydrocortisone Butyrate/Emoll (Locoid 0.1% Lipocream) 0.1 % CREAM..G. 1 ERVIN TOP TID PRN ANAL PAIN Levothyroxine Sodium (Synthroid) 100 MCG TABLET 1 TAB PO DAILY THYROID ( Reported) Moxifloxacin HCl (Moxifloxacin) 0.5 % DROPS 1 GTT OD Q3 conjunctivitis Oxycodone HCl/Acetaminophen (Percocet 5-325 MG Tablet) 5 MG-325 MG TABLET 1-2 TAB PO Q4-6 PRN PAIN . Sulfamethoxazole/Trimethoprim (Bactrim Ds Tablet) 800 MG-160 MG TABLET 1 TAB PO BID post op Triage Note: 42F AND WENT TO URGENT CARE WAS DX WITH CONJUNCTIVITIS AND RX FOR OINTMENT SENT TO [facility]. MED NOT AVAILABLE AND HERE FOR ANTIBIOTIC GTT'S. Triage Nurses Notes Reviewed? yes : No Patient currently breastfeeds: No HPI: Pt is a 42 y/o F complaining of right eye pain and scleral injection x 1 day. Pt noticed right eye pain early this morning. Pt admits to photophobia and lacrimation. Pt states that she uses contact lenses and noted a buildup of protein on the lenses. She was seen for this problem at a urgent care center but was prescribed medication which the pharmacy does not have. She is here for a new prescription. She denies any symptoms to the left side. Pt denies fevers , chills, pain with EOM, purulent drainage, change in vision. (Obey PARKS,Minh) Past History Travel History Traveled to [place] past 21 day No Medical History Any Pertinent Medical History? 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 No (Minh Barnhart MD) Review of Systems Review of Systems Constitutional: Reports: no symptoms. EENTM: Reports: see HPI. Respiratory: Reports: no symptoms. Cardiovascular: Reports: no symptoms. Musculoskeletal: Reports: no symptoms. Skin: Reports: no symptoms. Neurological/Psychological: Reports: no symptoms. (Minh Barnhart MD) Physical Exam Physical Exam General Appearance: well developed/nourished, no apparent distress, alert, awake , comfortable Comments: Well-appearing young woman, no acute distress. She is wearing glasses. She is alert and oriented 4. The right eye is injected with sparing of the limbus. PERRLA bilaterally. Extraocular muscles intact with no movement associated pain bilaterally. HEENT otherwise unremarkable. Cardiopulmonary exam within normal limits. Abdomen benign. Extremity exam unremarkable. Core Measures ACS in differential dx? No CVA/TIA Diagnosis: No Sepsis Present: No Sepsis Focused Exam Completed? No (Minh Barnhart MD) Progress Differential Diagnoses I considered the following diagnoses in my evaluation of the patient: Appears to be conjunctivitis, likely bacterial, in patient with chronic contact lens use. Lower suspicion for viral, allergic conjunctivitis. Low suspicion also for anterior uveitis, traumatic iritis. Low suspicion for corneal abrasion given lack of pain and likely alternative diagnosis. Plan of Care: Patient prescribed ciprofloxacin drops instead of moxifloxacin drops, discharged home with return precautions and follow-up instructions. Initial ED EKG: none (Minh Barnhart MD) Departure Departure Time of Disposition: 2128 Disposition: HOME OR SELF CARE Condition: Stable Clinical Impression Primary Impression: Conjunctivitis Referrals: Kirstie Roberts APRN (PCP/Family) Additional Instructions: Thank you for coming to [facility]. Call my cell phone if you have trouble filling the prescription Departure Forms: Customer Survey General Discharge Information Prescriptions: Current Visit Scripts Moxifloxacin HCl (Moxifloxacin) 1 GTT OD Q3 #1 BOT (Minh Barnhart MD) Resident Co-Sign Statement Statement: ED Attending supervision documentation- [] I saw and evaluated the patient. I have also reviewed all the pertinent lab results and diagnostic results. I agree with the findings and the plan of care as documented in the Resident's documentation. [X] I have reviewed the ED Record and agree with the Resident's documentation. [] Additions or exceptions (if any) to the Resident's note and plan are summarized below: [] (Dillon Cortez DO) Critical Care Note Critical Care Note Critical Care Time: non-applicable (Minh Barnhart MD)
--- NOTE | 2018-01-02 21:37 | ED GENERAL ADULT ---
History of Present Illness General Chief Complaint: General Adult Stated Complaint: MED REQ Vital Signs & Intake/Output Vital Signs & Intake/Output Vital Signs Date Time Temp Pulse Resp B/P B/P Pulse O2 O2 Flow FiO2 Mean Ox Delivery Rate 01/02 2108 97.0 62 18 113/76 98 Room Air Allergies Coded Allergies: Penicillins (HIVES 11/28/16) Reconcile Medications Benzonatate (Tessalon Perle) 100 MG CAPSULE 1 CAP PO TID COUGH (Reported) Cholecalciferol (Vitamin D3) 1,000 UNIT TABLET 1 TAB PO DAILY VITAMIN SUPPORT (Reported) Cyanocobalamin (Vitamin B-12) (Cyanocobalamin Injection) 1,000 MCG/ML VIAL 1 ML IM Q30D SUPPLEMENT (Reported) Hydrocortisone Butyrate/Emoll (Locoid 0.1% Lipocream) 0.1 % CREAM..G. 1 ERVIN TOP TID PRN ANAL PAIN Levothyroxine Sodium (Synthroid) 100 MCG TABLET 1 TAB PO DAILY THYROID ( Reported) Moxifloxacin HCl (Moxifloxacin) 0.5 % DROPS 1 GTT OD Q3 conjunctivitis Oxycodone HCl/Acetaminophen (Percocet 5-325 MG Tablet) 5 MG-325 MG TABLET 1-2 TAB PO Q4-6 PRN PAIN . Sulfamethoxazole/Trimethoprim (Bactrim Ds Tablet) 800 MG-160 MG TABLET 1 TAB PO BID post op Triage Note: 42F AND WENT TO URGENT CARE WAS DX WITH CONJUNCTIVITIS AND RX FOR OINTMENT SENT TO [facility]. MED NOT AVAILABLE AND HERE FOR ANTIBIOTIC GTT'S. : No Patient currently breastfeeds: No HPI: Pt is a 42 y/o F complaining of right eye pain and scleral injection x 1 day. Pt noticed right eye pain early this morning. Pt admits to photophobia and lacrimation. Pt states that she uses contact lenses and noted a buildup of protein on the lenses. Pt denies fevers, chills, pain with EOM, purulent drainage, change in vision. Past History Travel History Traveled to [place] past 21 day No Medical History Any Pertinent Medical History? 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 No Review of Systems Review of Systems Constitutional: Denies: see HPI. EENTM: Reports: see HPI. Physical Exam Physical Exam General Appearance: well developed/nourished, no apparent distress, alert Head: atraumatic, normal appearance Eyes: Bilateral: PERRL, EOMI. Comments: Scleral injection and lacrimation noted of right eye. Left eye WNL Departure Departure Condition: Stable Referrals: Kirstie Roberts APRN (PCP/Family) Departure Forms: Customer Survey General Discharge Information Prescriptions: Current Visit Scripts Moxifloxacin HCl (Moxifloxacin) 1 GTT OD Q3 #1 BOT
== END 2018-01-02 21:31 ==
LOC: ERH 20:58
DX: H10.9 Unspecified conjunctivitis (principal); H57.11 Ocular pain, right eye; D64.9 Anemia, unspecified; E03.9 Hypothyroidism, unspecified